=== PATIENT | female | born 1995 | race African-American/Black ===

== ENCOUNTER 2017-12-12 19:01 | Emergency (ER) | payer SELFPAY, OTHER ==
[2017-12-12 19:15] LABS: URINE HCG POC HCG NEGATIVE (Negative)
[2017-12-12] MEDS ORDERED: KETOROLAC 60 MG/2 ML INJ. IM ×2 (20:00)
[2017-12-12] MEDS ORDERED: ONDANSETRON ODT 4 MG TAB.RAPDIS. PO ×2 (20:00)
[2017-12-12 20:02] LABS: BILIRUBIN,URINE NEGATIVE (NEG); CLARITY,URINE CLOUDY; COLOR,URINE YELLOW; GLUCOSE,URINE NEGATIVE (NEG); NITRITE,URINE NEGATIVE (NEG); PROTEIN,URINE NEGATIVE (NEG-TRACE)
[2017-12-12 20:13] LABS: BACTERIA,URINE MANY /HPF (0-FEW); RBC,URINE 0 /HPF (0-2); SQUAMOUS EPITHELIAL CELL,UR MANY /LPF; WBC,URINE OCC /HPF (0-4)
[2017-12-12] MEDS ORDERED: ONDANSETRON PF 4 MG/2 ML VIAL. ×2 (20:21)
[2017-12-12] MEDS ORDERED: KETOROLAC 15 MG/ML VIAL. ×2 (20:21)
[2017-12-12] MEDS: KETOROLAC 15 MG/ML VIAL. IV ×2 (20:39)
[2017-12-12] MEDS: ONDANSETRON PF 4 MG/2 ML VIAL. IV ×2 (20:40)
[2017-12-12] MEDS ORDERED: AZITHROMYCIN 250 MG TABLET. PO ×2 (22:00)
[2017-12-12] MEDS: metroNIDAZOLE 500 MG TABLET PO ×2 (22:07)
[2017-12-12] MEDS: cefTRIAXone IM 250 MG VIAL IM ×2 (22:07)
[2017-12-12] MEDS: AZITHROMYCIN 250 MG TABLET. PO ×2 (22:08)
[2017-12-14 20:12] LABS: CHLAMYDIA PROBE Negative (Negative); GC PROBE Negative (Negative)
== END 2017-12-12 22:27 | disposition home or self-care (01) ==
LOC: ER 19:01
DX: N76.0 Acute vaginitis (principal); M32.9 Systemic lupus erythematosus, unspecified; I10 Essential (primary) hypertension; E11.9 Type 2 diabetes mellitus without complications
CPT/HCPCS: 81001; 81025; 87086; 87491; 87591; 96372; 96374; 96375; 99284-25; J0696; J1885; J2405; Q0111; Q0144

== ENCOUNTER 2018-09-02 20:21 | Emergency (ER) | payer SELFPAY ==
[~2018-09-02] VITALS: Ht 160 cm; Wt 54.0 kg
[~2018-09-02 20:21] MED LIST: METR500T PO; SULF1TAB24 PO
[2018-09-02] MEDS ORDERED: ONDANSETRON ODT 4 MG TAB.RAPDIS. PO ONE (21:15)
[2018-09-02 21:18] LABS: BILIRUBIN,URINE NEGATIVE (NEG); CLARITY,URINE CLEAR; COLOR,URINE YELLOW; NITRITE,URINE POSITIVE (NEG); PROTEIN,URINE NEGATIVE (NEG-TRACE)
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
[2018-09-02 21:27] LABS: BACTERIA,URINE MANY /HPF (0-FEW); RBC,URINE 0 /HPF (0-2); SQUAMOUS EPITHELIAL CELL,UR MANY /LPF; WBC,URINE TNTC /HPF (0-4)
[2018-09-02 21:42] LABS: U PREG PATIENT NEGATIVE (NEG)
[2018-09-02 22:04] LABS: INFLUENZA A PATIENT NEGATIVE (NEGATIVE); INFLUENZA B PATIENT NEGATIVE (NEGATIVE)
[2018-09-02 22:34] LABS: BARBITURATES NEG (NEG); BENZODIAZEPINES NEG (NEG); CANNABINOIDS NEG (NEG); COCAINE NEG (NEG); METHADONE NEG (NEG); OPIATES NEG (NEG); PHENCYCLIDINE NEG (NEG)
[2018-09-02 22:40] LABS: AMPHETAMINE/METHAMPHETAMINE NEG (NEG)
[2018-09-02] MEDS ORDERED: ONDA4TAB10 SL (22:47)
[2018-09-02] MEDS ORDERED: CEPH-264 PO (22:47)
[2018-09-02] MEDS ORDERED: CEPHALEXIN 250 MG CAPSULE. PO ONE (23:00)
[2018-09-02 23:20] VITALS: BP 121/63
== END 2018-09-02 23:25 | disposition home or self-care (01) ==
LOC: ER 20:21
DX: F41.9 Anxiety disorder, unspecified (principal); N39.0 Urinary tract infection, site not specified
CPT/HCPCS: 80307; 81001; 81025; 87086; 87804; 99284; Q0162; 87186; G0479

== ENCOUNTER 2018-09-05 18:26 | Emergency (ER) | payer SELFPAY ==
[~2018-09-05] VITALS: Ht 160 cm; Wt 54.0 kg
[~2018-09-05 18:26] MED LIST changes: +CEPH-264 PO; +ONDA4TAB10 SL
[2018-09-05 19:49] VITALS: BP 130/76
[2018-09-05] MEDS ORDERED: ONDANSETRON ODT 4 MG TAB.RAPDIS. PO ONE (21:00)
[2018-09-05] MEDS ORDERED: NITR100C62 PO (21:14)
--- NOTE | 2018-09-05 21:15 | PHYS DOC ---
Past Medical History Past Medical History: Other Additional Past Medical Histor: LUPUS Past Surgical History: No Surgical History Alcohol Use: None Drug Use: None Adult General Chief Complaint Chief Complaint: DIARRHEA HPI HPI Patient is a 22 year old female who presents with diarrhea 3 days. The patient is being treated with Keflex for a urinary tract infection. She denies nausea or vomiting. She has had chills off and on for the past few days. Review of Systems Review of Systems Constitutional: Denies fever or chills [] Respiratory: Denies cough or shortness of breath [] Cardiovascular: No additional information not addressed in HPI [] GI: See history of present illness : See history of present illness Musculoskeletal: Denies back pain or joint pain [] Integument: Denies rash or skin lesions [] Neurologic: Denies headache, focal weakness or sensory changes [] Endocrine: Denies polyuria or polydipsia [] All other systems were reviewed and found to be within normal limits, except as documented in this note. Current Medications Current Medications Current Medications Medications (Trade) Dose Ordered Sig/Negar Start Time Stop Time Status Last Admin Dose Admin Ondansetron HCl (Zofran Odt) 4 mg 1X ONCE 09/05/18 21:00 09/05/18 21:01 DC 09/05/18 21:10 4 MG Allergies Allergies Allergies Coded Allergies Type Severity Reaction Last Updated Verified No Known Drug Allergies 04/16/15 No Physical Exam Physical Exam Constitutional: Well developed, well nourished, no acute distress, non-toxic appearance. [] HENT: Normocephalic, atraumatic, bilateral external ears normal, oropharynx moist, no oral exudates, nose normal. [] Eyes: PERRLA, EOMI, conjunctiva normal, no discharge. [] Neck: Normal range of motion, no tenderness, supple, no stridor. [] Cardiovascular:Heart rate regular rhythm, no murmur [] Lungs & Thorax: Bilateral breath sounds clear to auscultation [] Abdomen: Bowel sounds normal, soft, no tenderness, no masses, no pulsatile masses. [] Skin: Warm, dry, no erythema, no rash. [] Back: No tenderness, no CVA tenderness. [] Extremities: No tenderness, no cyanosis, no clubbing, ROM intact, no edema. [] Neurologic: Alert and oriented X 3, normal motor function, normal sensory function, no focal deficits noted. [] Psychologic: Affect normal, judgement normal, mood normal. [] Current Patient Data Vital Signs Vital Signs Date Time Temp Pulse Resp B/P (MAP) Pulse Ox O2 Delivery O2 Flow Rate FiO2 09/05/18 19:49 98.8 94 18 130/76 (94) 100 Room Air 98.8 EKG EKG [] Radiology/Procedures Radiology/Procedures [] Course & Med Decision Making Course & Med Decision Making Pertinent Labs and Imaging studies reviewed. (See chart for details) [] Staff Physician Addendum: I was working in the ER during the course of this patient's visit. I was available for consultation as needed, but I was not directly involved in the care of this patient. Dragon Disclaimer [employer] Disclaimer This electronic medical record was generated, in whole or in part, using a voice recognition dictation system. Departure Departure Impression: Primary Impression: UTI (urinary tract infection) Additional Impression: Medication reaction Referrals: NO PCP (PCP) Patient Instructions: Antibiotic Medication, Urinary Tract Infection Additional Instructions: The antibiotic that you are currently taking may be the cause of your diarrhea and stomach upset. Stop taking that medication and switched to the new antibiotic. Follow-up with your primary care provider in one week for urine recheck. If worsening return to the emergency department. Scripts Nitrofurantoin Monohyd/M-Cryst (MACROBID 100 MG CAPSULE) 100 Mg Capsule 1 CAP PO BID, #14 CAP Prov: ADAM SEXTON APRN 09/05/18 Problem Qualifiers ADAM SEXTON APRN Sep 05, 2018 21:15 NICOLÁS CEDILLO MD Sep 15, 2018 06:50
== END 2018-09-05 21:35 | disposition home or self-care (01) ==
LOC: ER 18:26
DX: N39.0 Urinary tract infection, site not specified (principal); T50.905A Adverse effect of unspecified drugs, medicaments and biological substances, initial encounter; Y92.89 Other specified places as the place of occurrence of the external cause
CPT/HCPCS: 99283; Q0162